=== PATIENT | female | born 1970 | race Caucasian/White ===

== ENCOUNTER 2024-07-27 13:58 | Outpatient (CLI) | payer BC, SELFPAY | END 2024-07-27 13:59 | disposition home or self-care (01) | PROVIDERS: Visit Provider Radiology Radiation Oncology | DX: M79.605 Pain in left leg (principal) | CPT/HCPCS: 93971 ==

== ENCOUNTER 2024-07-28 09:23 | Outpatient (CLI) | payer BC, SELFPAY ==
--- NOTE | 2024-07-28 10:00 | CRLHL7_ITS ---
For Patients: As a result of the Century Cures Act, medical imaging exams and procedure reports are released immediately into your electronic medical record. You may view this report before your referring provider. If you have questions, please contact your health care provider. INDICATION: History of endometrial cancer. New pain and fecal incontinence. TECHNIQUE: Pelvic MRI with T1, T2, and postcontrast images. Intravenous gadolinium administered. FINDINGS: Hysterectomy. The ovaries are not visualized. No pelvic masses or adenopathy. Midline anterior pelvic wall incision site. No other bony or soft tissue abnormalities identified. Impression : 1. No metastatic disease identified in the pelvis. Dictated by Gianfranco Ocampo MD @ 07/31/2024 8:31:47 AM (Electronically Signed)
== END 2024-07-28 09:24 | disposition home or self-care (01) ==
LOC: MRI 09:23
PROVIDERS: Visit Provider Radiology Radiation Oncology
DX: M79.605 Pain in left leg (principal); M51.27 Other intervertebral disc displacement, lumbosacral region; M51.26 Other intervertebral disc displacement, lumbar region; C54.9 Malignant neoplasm of corpus uteri, unspecified; R15.9 Full incontinence of feces
CPT/HCPCS: 72158; 72197; A9575

== ENCOUNTER 2024-08-15 11:09 | Outpatient (CLI) | payer BC, SELFPAY ==
[2024-08-15 11:36] LABS: Basophils Absolute Auto 0.02 K/uL (0.00-0.30); Basophils Percent Auto 0.4 % (0.0-3.0); Eosinophils Absolute Auto 0.06 K/uL (0.00-0.50); Eosinophils Percent Auto 1.1 % (0.0-7.0); Hematocrit 42.3 % (33.0-51.0); Hemoglobin* 13.2 gm/dL (12.0-16.0); Immature Granulocytes Abs Auto 0.05 K/uL (0.00-0.30); Immature Granulocytes Pct Auto 0.9 %; Lymphocytes Percent Auto 13.5 % (20-44); Mean Corpuscular HGB Conc 31 gm/dL (32-36); Mean Corpuscular Hemoglobin 27 pg (26-34); Mean Corpuscular Volume 85 fL (80-100); Monocytes Percent Auto 7.6 % (0.0-11.0); Neutrophils Percent Auto 76.5 % (42.0-72.0); Platelet Count* 123 K/uL (140-440); RDW Coefficient of Variation % 17.2 % (11.5-15.5); Red Blood Count 4.98 m/uL (4.00-5.20); White Blood Count* 5.65 K/uL (4.50-11.00)
[2024-08-15 11:39] LABS: Appearance Urine Clear (Clear); Bilirubin Urine Negative (Negative); Blood Urine Negative (Negative); Color Urine Light yellow (Yellow); Glucose Urine 2+ (Negative); Ketones Urine Negative (Negative); Leukocyte Esterase Urine Negative (Negative); Nitrite Urine Negative (Negative); Protein Urine Negative (Negative); Specific Gravity Urine <= 1.005 (1.000-1.030); Urobilinogen Urine 0.2 (0.2-1.0); pH Urine 5.5 (5.0-8.5)
[2024-08-15 11:43] LABS: Slide Review Reflex No
[2024-08-15 11:52] LABS: Albumin* 4.6 g/dL (3.3-5.0); Chloride* 99 mmol/L (96-114)
[2024-08-15 11:53] LABS: Potassium* 4.1 mmol/L (3.6-5.1); Sodium* 136 mmol/L (135-149)
[2024-08-15 11:55] LABS: Alkaline Phosphatase* 67 U/L (40-150); Anion Gap 8 mEq/L (7-15); Aspartate Amino Transferase* 24 U/L (12-35); Bilirubin Total* 0.5 mg/dL (0.1-1.5); Blood Urea Nitrogen* 10 mg/dL (7-30); Carbon Dioxide* 29 mmol/L (20-32); Creatinine* 0.6 mg/dL (0.5-1.5); Estimated Glomerular Filt Rate 107 ml/min
[2024-08-15 11:56] LABS: Alanine Aminotransferase* 27 U/L (4-35); Calcium* 9.4 mg/dL (8.4-10.6); Glucose* 102 mg/dL (60-115)
[2024-08-15 11:57] LABS: Bacteria Urine Few; RBC Urine 0-2 (0-2); Squamous Epithelial Cell Urine Few (None-Few); WBC Urine 0-2 (0-5)
== END 2024-08-15 11:10 | disposition home or self-care (01) ==
LOC: LAB 11:09
PROVIDERS: Visit Provider Radiology Radiation Oncology
DX: R35.0 Frequency of micturition (principal); R42 Dizziness and giddiness
CPT/HCPCS: 36415; 80053; 81001; 85025; 87086

== ENCOUNTER 2024-08-23 14:30 | Outpatient (RCR) | payer BC, SELFPAY | END 2024-12-21 23:59 | disposition home or self-care (01) | PROVIDERS: Visit Provider Family Medicine | DX: M54.16 Radiculopathy, lumbar region (principal); Z51.89 Encounter for other specified aftercare | CPT/HCPCS: 97110; 97140; 97163 ==